=== PATIENT | female | born 1985 | race Caucasian/White ===

== ENCOUNTER 2022-02-16 14:19 | Emergency (ER) | payer OTHER ==
[~2022-02-16] VITALS: Wt 87.5 kg
[~2022-02-16 14:19] MED LIST: AMOXICILLIN500 MG PO; ANAPROX DS550 MG PO; NKHM; VICODIN 500 MG-1 TAB PO
[2022-02-16] MEDS ORDERED: PREDNISONE10 MG PO (14:42)
[2022-02-16] MEDS ORDERED: EPIPEN 2-P0.3 MG/0.3 IJ (14:42)
== END 2022-02-16 15:20 | disposition home or self-care (01) ==
LOC: ED 14:19
DX: L50.8 Other urticaria (principal); T78.2XXA Anaphylactic shock, unspecified, initial encounter; Y92.89 Other specified places as the place of occurrence of the external cause